=== PATIENT | male | born 1990 | race African-American/Black ===

== ENCOUNTER 2017-01-30 06:45 | Emergency (ER) | payer OTHER ==
[~2017-01-30] VITALS: Ht 172.7 cm; Wt 68.0 kg
[2017-01-30] MEDS ORDERED: naproxen (06:57)
--- NOTE | 2017-01-30 08:21 | REP ---
Bilateral scrotal sonography: History: Left testalgia times 1 year. No comparison study. Findings: High-resolution bilateral scrotal sonography is performed. There are a few scattered testicular microcalcifications noted bilaterally as an incidental finding which is not felt to be significant. No intratesticular mass lesion is seen. Epididymides are unremarkable. Normal Doppler flow was confirmed in both testes. Resistive indices are 0.47 and 0.48 on the right and left respectively. Right testicular dimensions are 5.6 x 2.9 x 2.8 cm. Left testis measures 5.3 x 2.7 x 3.3 cm. Impression: No significant abnormality. Normal Doppler flow. No intratesticular mass lesion seen. Signed by Mitesh De Paz MD 01/30/2017 10:04 A
[2017-01-30 09:22] VITALS: BP 117/77
== END 2017-01-30 09:24 | disposition home or self-care (01) ==
LOC: M ED 08:15
DX: N50.812 Left testicular pain (principal); G89.29 Other chronic pain; Z87.891 Personal history of nicotine dependence